=== PATIENT | male | born 1995 | race Two or more races ===

== ENCOUNTER 2017-01-15 00:36 | Emergency (ER) | payer BC ==
[2017-01-15] MEDS ORDERED: NS 2,000 ML IV ONE (00:44)
[2017-01-15] MEDS ORDERED: MIDAZOLAM 2 MG/2 ML VIAL IVP ONE ×2 (00:45→00:57)
--- NOTE | 2017-01-15 00:49 | EDPHY ---
H & P HPI/ROS: HPI CHIEF COMPLAINT: Drug intoxication, LSD and acid, combative behavior, aggressive behavior HISTORY OF PRESENT ILLNESS: This patient 21-year-old male, presents emergency room by EMS and police in 4 point restraints. Number was called this evening to his house with roommates was acting bizarrely with violent behavior. He admits to doing acid a large amount as well as LSD. Roommates report this as well. He was violent. Requiring police and EMS requiring 4 point restraints. He presents emergency room in 4 point restraints by EMS with police escort. He is noted to be tachycardic in the 150s. He has 8mm dilated pupils. Minimally reactive to light. He staring off into space. At times he screams. He does not follow directions. Past Medical History: Unknown medical history Past Surgical History: Unknown surgical history Social History: Admits to doing acid LSD this evening. Family History: Noncontributory ROS REVIEW OF SYSTEMS: A comprehensive 10 point review of systems is otherwise negative aside from elements mentioned in the history of present illness. Exam Constitutional agitated, aggressive, triage nursing summary reviewed, vital signs reviewed, awake/alert. Eyes normal conjunctivae and sclera, EOMI 8 mm minimally reactive to light. HENT normal inspection, atraumatic, moist mucus membranes, no epistaxis, neck supple/ no meningismus, no raccoon eyes. Respiratory clear to auscultation bilaterally, normal breath sounds, no respiratory distress, no wheezing. Cardiovascular tachycardic , regular rhythm, no murmur, no edema, distal pulses normal. Gastrointestinal soft, non-tender, no rebound, no guarding, normal bowel sounds, no distension, no pulsatile mass. Genitourinary no CVA tenderness. Musculoskeletal no midline vertebral tenderness, full range of motion, no calf swelling, no tenderness of extremities, no meningismus, good pulses, neurovascularly intact. Skin pink, warm, & dry, no rash, skin atraumatic. Neurologic awake, agitated, does not follow commands, moves all extremities. Aggressive behavior. Psychiatric aggressive and combative. Heme/Lymph/Immune no lymphadenopathy. Differential Diagnosis: Includes but is not limited to in a particular order polysubstance abuse, acute drug intoxication, acid, LSD, other stimulant, rhabdomyolysis, excited delirium, combative behavior Medical Decision Making: Plan for this patient IV establishment IV fluid bolus , check CK level, check creatinine, IV Versed for sedation. Full manager cardiac. Obtain EKG. Electrolytes. Re-evaluation: EKG interpretation by me on record in [facility] system. Impression time of Ekg 005: Sinus tachycardia rate of 141. Otherwise unremarkable. 0133AM: Patient is still agitated. Tachycardic to 140s. This is after 8 mg IV Versed. I have ordered 10 mg IM Zyprexa. We will closely monitor re- evaluate. He is not hyperthermic. 0323AM: Patient is sleeping. Current heart rate 79. Resting comfortably. No longer acutely agitated. 0545AM: Patient is now up alert. Com. Cooperative. Follows commands. Stable gait. Vital signs are stable. Answers my questions appropriately he acts appropriately. He sees admits to doing large amount of acid this evening. Feels much better is requesting discharge. Source: Patient, Police, EMS Constitutional: Initial Vital Signs Temperature (C) 37.1 C 01/15/17 00:40 Heart Rate 138 H 01/15/17 00:40 Respiratory Rate 20 01/15/17 00:40 Blood Pressure 157/85 H 01/15/17 00:40 O2 Sat (%) 97 01/15/17 00:40 O2 Delivery Mode Room Air Allergies/Adverse Reactions: peanut Allergy (Verified 01/15/17 00:44) Home Medications: Medication Instructions Recorded NK [No Known Home Meds] 01/15/17 Medical Decision Making - Data Points Laboratory Results: Laboratory Results 01/15/17 00:48 01/15/17 00:48 01/15/17 01/15/17 00:48 00:48 WBC 18.32 10^3/uL H 10^3/uL (3.80-9.50) RBC 5.34 10^6/uL 10^6/uL (4.40-6.38) Hgb 15.9 g/dL g/dL (13.7-17.5) Hct 49.1 % % (40.0-51.0) MCV 91.9 fL fL (81.5-99.8) MCH 29.8 pg pg (27.9-34.1) MCHC 32.4 g/dL g/dL (32.4-36.7) RDW 12.1 % % (11.5-15.2) Plt Count 362 10^3/uL 10^3/uL (150-400) MPV 10.8 fL fL (8.7-11.7) Neut % (Auto) 69.5 % % (39.3-74.2) Lymph % (Auto) 22.3 % % (15.0-45.0) [place] % (Auto) 6.4 % % (4.5-13.0) Eos % (Auto) 0.5 % L % (0.6-7.6) Baso % (Auto) 0.8 % % (0.3-1.7) Nucleat RBC Rel Count 0.0 % % (0.0-0.2) Absolute Neuts (auto) 12.72 10^3/uL H 10^3/uL (1.70-6.50) Absolute Lymphs (auto) 4.08 10^3/uL H 10^3/uL (1.00-3.00) Absolute Monos (auto) 1.18 10^3/uL H 10^3/uL (0.30-0.80) Absolute Eos (auto) 0.10 10^3/uL 10^3/uL (0.03-0.40) Absolute Basos (auto) 0.14 10^3/uL H 10^3/uL (0.02-0.10) Absolute Nucleated RBC 0.00 10^3/uL 10^3/uL (0-0.01) Immature Gran % 0.5 % % (0.0-1.1) Immature Gran # 0.10 10^3/uL 10^3/uL (0.00-0.10) Sodium 149 mEq/L H mEq/L (134-144) Potassium 4.4 mEq/L mEq/L (3.5-5.2) Chloride 103 mEq/L mEq/L (97-110) Carbon Dioxide 12 mEq/l L mEq/l (22-31) Anion Gap 34 mEq/L H mEq/L (8-16) BUN 15 mg/dL mg/dL (7-23) Creatinine 1.8 mg/dL H mg/dL (0.7-1.3) Estimated GFR 48 Glucose 291 mg/dL H mg/dL (70-100) Calcium 10.5 mg/dL H mg/dL (8.5-10.4) Creatine Kinase 316 IU/L H IU/L (0-224) CK-MB (CK-2) Fraction 1.01 ng/mL ng/mL (0.00-3.19) CK-MB (CK-2) % 0.3 % % (0.0-4.0) Creatine Kinase Interp NEGATIVE (NEGATIVE) Ethyl Alcohol < 10 mg/dL mg/dL (0-10) Medications Given: Discontinued Medications Sodium Chloride (Ns) 2,000 mls @ 0 mls/hr IV EDNOW ONE; Wide Open PRN Reason: Protocol Stop: 01/15/17 00:45 Last Admin: 01/15/17 00:53 Dose: 2,000 mls Midazolam HCl (Versed) 4 mg IVP EDNOW ONE Stop: 01/15/17 00:46 Last Admin: 01/15/17 00:53 Dose: 4 mg Midazolam HCl (Versed) 4 mg IVP EDNOW ONE Stop: 01/15/17 00:58 Last Admin: 01/15/17 01:06 Dose: 4 mg Olanzapine (Zyprexa Im Injection) 10 mg IM EDNOW ONE Stop: 01/15/17 01:28 Last Admin: 01/15/17 01:31 Dose: 10 mg Departure - Departure Disposition: Home, Routine, Self-Care Clinical Impression: Polysubstance abuse Condition: Good Instructions: Polysubstance Abuse (ED) Referrals: Patient,NotPresent [Unknown] - As per Instructions
[2017-01-15 00:56] LABS: % IMMATURE GRANULYOCYTES 0.5 % (0.0-1.1); ADD DIFF? NO; ADD MORPH? NO; ADD SCAN? NO; ATYPICAL LYMPHOCYTE FLAG 0 (0-99); FRAGMENT RBC FLAG 0 (0-99); HEMATOCRIT 49.1 % (40.0-51.0); HEMOGLOBIN 15.9 g/dL (13.7-17.5); LEFT SHIFT FLG 0 (0-99); LIPEMIA HEMOLYSIS FLAG 80 (0-99); MEAN CELL HEMOGLOBIN 29.8 pg (27.9-34.1); MEAN CELL HEMOGLOBIN CONCENTR. 32.4 g/dL (32.4-36.7); MEAN CELL VOLUME 91.9 fL (81.5-99.8); MEAN PLATELET VOLUME 10.8 fL (8.7-11.7); PLATELET CLUMPS FLAG 0 (0-99); PLATELET COUNT 362 10^3/uL (150-400); RED BLOOD CELL COUNT 5.34 10^6/uL (4.40-6.38); RED CELL DISTRIBUTION WIDTH 12.1 % (11.5-15.2)
[2017-01-15] MEDS ORDERED: MIDAZOLAM 2 MG/2 ML VIAL ONE (00:58)
--- NOTE | 2017-01-15 01:01 | CPEKG ---
Heart Rate: 141 RR Interval: 426 P-R Interval: 136 QRSD Interval: 102 QT Interval: 284 QTC Interval: 435 P Laurier: 70 QRS Laurier: 137 T Wave Laurier: 46 EKG Severity - ABNORMAL ECG - EKG Impression: SINUS TACHYCARDIA EKG Impression: ALO, CONSIDER BIATRIAL ABNORMALITIES EKG Impression: PROBABLE RVH W/ SECONDARY REPOL ABNORMALITY EKG Impression: INFERIOR Q WAVES, PROBABLY NORMAL VARIATION Electronically Signed By: Jey Hernández 15-Jan-2017 06:47:54
[2017-01-15 01:11] LABS: ANION GAP 34 mEq/L (8-16); CALCIUM 10.5 mg/dL (8.5-10.4); CARBON DIOXIDE 12 mEq/l (22-31); CHLORIDE 103 mEq/L (97-110); CREATININE 1.8 mg/dL (0.7-1.3); ETHANOL SERUM < 10 mg/dL (0-10); GLOMERULAR FILTRATION RATE 48; GLUCOSE 291 mg/dL (70-100); POTASSIUM 4.4 mEq/L (3.5-5.2); SODIUM 149 mEq/L (134-144)
[2017-01-15] MEDS ORDERED: OLANZapine 10 MG/2 ML VIAL IM ONE (01:27)
[2017-01-15 01:42] LABS: CK-MB INTERPRETATION NEGATIVE (NEGATIVE); CREATINE KINASE-MB FRACTION 1.01 ng/mL (0.00-3.19)
[2017-01-15 05:41] VITALS: TEMP 97.9; O2SAT 96
[2017-01-15 05:58] VITALS: BP 133/74; PULSE 81; RESP 16
== END 2017-01-15 05:58 | disposition home or self-care (01) ==
DX: F19.10 Other psychoactive substance abuse, uncomplicated (principal); E86.9 Volume depletion, unspecified; Z91.010 Allergy to peanuts
CPT/HCPCS: 96374; G0480; J2250